=== PATIENT | male | born 1965 | race African-American/Black ===

== ENCOUNTER 2019-04-28 18:47 | Emergency (ER) | payer SELFPAY ==
[~2019-04-28] VITALS: Ht 175.3 cm; Wt 82.0 kg
[2019-04-28 19:25] VITALS: BP 146/96
== END 2019-04-28 20:44 | disposition left against medical advice (07) ==
LOC: ER 18:47
DX: Z53.21 Procedure and treatment not carried out due to patient leaving prior to being seen by health care provider (principal)